=== PATIENT | female | born 1990 | race Caucasian/White ===

== ENCOUNTER 2021-07-27 22:18 | Outpatient (CLI) | payer MEDICAID, SELFPAY ==
[2021-07-27 22:25] VITALS: BMI 46.7
[2021-07-27 22:31] VITALS: PULSE 8; O2SAT 84
[2021-07-27 22:36] VITALS: BP 123/71; PULSE 98; TEMP 36.8; O2SAT 97
--- NOTE | 2021-07-28 11:08 | OB.TRI.NOTE ---
HPI - General HPI Narrative YESIKA ERIC, is a 31 F who presents at 39w5d with decreased movement. Unsure how many times baby had moved throughout the day, did not do kick counts. Had 3 movements in last half hour but decided to come in for evaluation. Upon arrival good movement. No contractions, vaginal bleeding, leakage of fluid or other concerns. Maternal Data Information DIOR Calculator Estimated Delivery Date Method Current WG Current Estimate 07/29/21 Manual 39w 6d PFSH PFSH Home Medications famotidine 20 mg PO BID #28 tablet 06/06/16 [Rx Last Taken Unknown] [id number] [ + Iron] 1 tab PO DAILY 07/27/21 [History Last Taken 07/26/21 08:00] Allergy/AdvReac Type Severity Reaction Status Date / Time No Known Allergies Allergy Verified 07/27/21 22:30 Social History Smoking Status: Former smoker Physical Exam Narrative 1cm NST FHR Rate Baby A Baseline: 135 Variability:: Moderate Accelerations:: 15 x 15 Decelerations:: None NST Reactive:: Yes Uterine Activity:: Irregular, unable to palpate Assessment & Plan (1) Decreased movement: (2) Term : PLAN: 1) Reactive NST, good movement upon arrival. No signs of labor 2) Labor instructions reviewed and when to call
== END 2021-07-27 23:43 | disposition home or self-care (01) ==
LOC: WPOUT 22:22 → WP 22:22
PROVIDERS: Referring Provider Advanced Practice Midwife; Visit Provider Advanced Practice Midwife
DX: O36.8130 Decreased fetal movements, third trimester, not applicable or unspecified (principal); Z3A.39 39 weeks gestation of pregnancy
CPT/HCPCS: 59025; 59050; 99218; G0378

== ENCOUNTER 2021-08-01 19:22 | Inpatient (IN) | payer MEDICAID, SELFPAY ==
[2021-08-01 19:43] VITALS: BP 137/80; PULSE 71; TEMP 36.6
[2021-08-01 20:13] LABS: Absolute Lymphocyte Count 3.55 X10^3/uL (0.83-4.51); Absolute Neutrophil Count 8.1 X10^3/uL (2.0-7.7); Basophil# 0.03 X10^3/uL; Basophil% 0.2 % (0-1); Eosinophil# 0.23 X10^3/uL; Eosinophils% 1.7 % (0-5); Hematocrit 38.3 % (37-47); Lymphocyte # 3.55 X10^3/ul (0.83-4.51); Mean Corp Hgb Conc 33.9 g/dL (32-36); Mean Corpuscular Hgb 30.8 pg (27.0-32.0); Mean Corpuscular Volume 90.8 fL (81-99); Mean Platelet Vol. 10.1 fl (6.2-12.0); Monocyte# 1.32 X10^3/uL; Monocyte% 9.7 % (0-10); NRBC Flagged by Analyzer 0 % (0-5); Neutrophil # 8.13 X10^3/uL (2.7-7.7); Neutrophil % 59.6 % (47-70); Platelet Count 278 K/mm3 (150-450); RBC Distribution Width CV 12.8 % (11.6-14.6); RBC Distribution Width SD 41.6 fl (35.1-43.9); Red Blood Count 4.22 M/mm3 (4.2-5.4); White Blood Count 13.6 K/mm3 (4.4-11.0)
--- NOTE | 2021-08-01 20:25 | PCM.HP.OB ---
HPI - General General Date of Admission: 08/01/21 HPI Narrative YESIKA ERIC, is a 31 year old at 40.3 weeks gestation who presents for induction of labor for postdates. has been complicated by late care, obesity, Hep. C positive, and GBS positive. She denies any loss of fluid, vaginal bleeding or contractions. Positive movement. Maternal Data Information DIOR Calculator Estimated Delivery Date Method Current WG Current Estimate 07/29/21 Manual 40w 3d PFSH PFSH Home Medications [id number] [ + Iron] 1 tab PO DAILY 07/27/21 [History Last Taken 07/26/21 08:00] Allergy/AdvReac Type Severity Reaction Status Date / Time No Known Allergies Allergy Verified 08/01/21 20:40 Social History Smoking Status: Former smoker NST FHR Rate Baby A Baseline: 135 Variability:: Moderate (Difficult to trace due to maternal size and position) Accelerations:: 15 x 15 Decelerations:: None NST Reactive:: Yes FHR Category:: Category I Uterine Activity:: TOCO- no contractions noted ROS Eyes Eyes: Denies blurry vision, change in vision or spots in vision ENT HEENT: Denies dizziness or headache(s) Cardiovascular Cardiovascular: Denies abdominal pain, chest pain or dyspnea Respiratory/Chest Respiratory/Chest: Denies cough, dyspnea, shortness of breath at rest or shortness of breath with exertion Gastrointestinal Gastrointestinal: Denies abdominal pain, diarrhea or vomiting Genitourinary Genitourinary: Denies change in urinary stream, difficulty urinating or dysuria Musculoskeletal Musculoskeletal: Reports none Integumentary Integumentary: Denies rash Neurologic Neurologic: Denies dizziness, headache(s), memory loss or weakness Psychiatric Psychiatric: Reports none Vital Signs Vital Signs Vital Signs: 08/01/21 19:43 Temperature 97.9 F Temperature Source Temporal Pulse Rate 71 Blood Pressure 137/80 H BP Systolic 137 BP Diastolic 80 Physical Exam Const alert, oriented x3 and no apparent distress General Appearance: cooperative Orientation / Consciousness: awake Exam Limitations: no limitations HEENT normocephalic Head and Scalp: normal to inspection Eyes General Eye: normal appearance of both eyes Neck full ROM and no lymphadenopathy Lymph Lymphatic: no lymphadenopathy noted Chest inspection of chest normal Resp normal respiratory effort, normal air movement and clear to auscultation bilaterally Effort and Inspection: able to speak in complete sentences and symmetric chest movement Cardio regular rate and regular rhythm GI normal to inspection, nondistended, normoactive bowel sounds Manual OB Exam: dilated 0.5, effaced 50 and station -3 Back/Spine normal ROM Extremity full ROM and no calf tenderness Skin no rashes or lesions noted General Skin Exam: no breakdown Neuro oriented x3 and CN's II-XII intact bilaterally Psych mental status grossly normal and thought process normal Labs Labs Labs: Blood Type Pending Antibody Screen Pending Hct 38.3 % (37-47) Hgb 13.0 g/dL (12.0-15.0) Neisseria gonorrhoeae DNA (PATRICIA) Negative (Negative) C.trachomatis DNA (PCR) Negative (Negative) B+ Rubella- immune HB- neg HC- positive RPR- NR HIV- NR GBS - positive Assessment & Plan (1) 40 weeks gestation of : (2) Obesity affecting , antepartum: (3) Hepatitis C test positive: (4) Late care affecting : QUALIFIERS: Trimester: third trimester Qualified Code(s): O09.33 - Supervision of with insufficient care, third trimester PLAN: Admit to labor and delivery for induction of labor NST reactive- Cat. 1 tracing IV- SL Labs per policy CE- 0.5/50/-3 Patient declining placement of mathis bulb at this time Cytotec 25 mcg PO every 4 hours GBS positive- Start PCN 5 million units IV then PCN 3 million units IV every 4 hours Hep C positive- no internal monitors Dr. Smith notified of admission and is collaborating physician
[2021-08-01] MEDS: miSOPROStol 25 MCG TABLET PO (20:35)
[2021-08-01 20:37] VITALS: BMI 46.2
--- NOTE | 2021-08-01 20:42 | NURSING ---
Pt mother in room and aunt Richard is other support person. Tab answered multiple questions for pt on admission about plan of care and management of after delivery. RN understanding after talking with pt and support people is that pt lives with Richard and pt mother lives in [place] and just drove up tonight to be with pt. This RN observed that aunt Richard spoke authoritatively over pt and tried on multiple times to influence her care and make decisions for her. At one point while this RN was adjusting FHR monitor aunt Richard made a comment about pt stating well you have all that extra tissue there referring to pts body image.
[2021-08-01 21:38] LABS: Amphetamine Urine VISTA NEGATIVE (<1000 ng/mL); Barbiturate Urine VISTA NEGATIVE (< 200 ng/mL); Benzodiazepine Urine VISTA NEGATIVE (< 200 ng/mL); Cocaine Urine VISTA NEGATIVE (< 300 ng/mL); Ecstacy Urine VISTA NEGATIVE (< 500 ng/mL); Methadone Urine VISTA NEGATIVE (< 300 ng/mL); PCP Urine VISTA NEGATIVE (< 25 ng/mL); THC Urine VISTA NEGATIVE (< 50 ng/mL); Vista UDS pH Range 6
[2021-08-01 23:16] VITALS: O2SAT 97
[2021-08-01 23:17] VITALS: BP 120/66; PULSE 68; TEMP 36.4
--- NOTE | 2021-08-01 23:59 | NURSING ---
Pt does not want to disclose name or race of father. Pt states father is not involved.
[2021-08-02] VITALS (84 sets, daily range): BP systolic 114–158; BP diastolic 59–92; PULSE 50–97; RESP 16–18; TEMP 35.9–37.2; O2SAT 90–100
[2021-08-02] MEDS: miSOPROStol 25 MCG TABLET PO ×2 (00:34→04:44)
[2021-08-02] MEDS: Mag Hydrox/Al Hydrox/Simeth 30 ML UDC PO (00:38)
[2021-08-02] MEDS: Lactated Ringers 500 ML 999 ML IV ×3 (06:30→20:51)
[2021-08-02] MEDS: 0.9% Normal Saline Single 100 ML IV.SOLN. INTRA-UTER (08:45)
[2021-08-02] MEDS: Lactated Ringers 1,000 ML 50 ML IV (09:00)
[2021-08-02] MEDS: Oxytocin 30 units/NS 500 ml 30 UNITS/500 ML IV.SOLN IV (10:18)
[2021-08-02] MEDS: Penicillin G 3,000,000 Units 50 ML 100 UNITS IV (14:10)
[2021-08-02] MEDS: 0.9% Saline Lock 10 ML Syringe IV (15:50)
[2021-08-02] MEDS: fentaNYL 100 MCG/2 ML Ampul IV (15:50)
--- NOTE | 2021-08-02 17:28 | PN.OBGYN_ITS ---
Subjective Subjective Uncomfortable with contractions, crying and tearful. Objective Data Objective Data Vital Signs: Vital Signs Temp Pulse BP Pulse Ox 97.5 F L 74 127/82 H 97 08/02/21 13:34 08/02/21 13:34 08/02/21 13:34 08/02/21 10:02 Weight: 295 lb Body Mass Index (BMI) 46.2 Intake & Output: Intake and Output for Last 24 Hours 07/31/21 08/01/21 08/02/21 23:59 23:59 23:59 Intake Total 2302.57 / 2302.57 Output Total 400 / 400 200 / 200 Balance -400 / -400 2102.57 / 2102.57 Lab / Micro Data Result Diagrams: 08/01/21 19:50 Labs: Laboratory Results - last 24 hr 08/01/21 19:50: WBC 13.6 H, RBC 4.22, Hgb 13.0, Hct 38.3, MCV 90.8, MCH 30.8, MCHC 33.9, RDW Std Deviation 41.6, RDW Coeff of Shonda 12.8, Plt Count 278, MPV 10.1, Immature Gran % (Auto) 2.800 H, Neut % (Auto) 59.6, Lymph % (Auto) 26.0, Cooper % (Auto) 9.7, Eos % (Auto) 1.7, Baso % (Auto) 0.2, Absolute Neuts (auto) 8.1 H, Absolute Lymphs (auto) 3.55, Nucleated RBC % 0 08/01/21 19:50: Blood Type B POSITIVE, Antibody Screen NEGATIVE 08/01/21 21:20: Urine Opiates Screen NEGATIVE, Urine Methadone Screen NEGATIVE, Ur Barbiturates Screen NEGATIVE, Ur Phencyclidine Scrn NEGATIVE, Ur Amphetamines Screen NEGATIVE, U Methamphetamin-MDMA NEGATIVE, U Benzodiazepines Scrn NEGATIVE, Urine Cocaine Screen NEGATIVE, U Cannabinoids Screen NEGATIVE, Ur Drug Screen Comment Physical Exam Narrative 5/80/-2, moderate amount of meconium stained fluid, AROM NST FHR Rate Baby A Baseline: 145 Variability:: Moderate Accelerations:: 15 x 15 Decelerations:: None FHR Category:: Category I Uterine Activity:: every 2-4 minutes Assessment & Plan (1) 40 weeks gestation of : (2) Obesity affecting , antepartum: (3) Hepatitis C test positive: PLAN: 1) AROM 2) Epidural for pain management 3) Pitocin increase per policy 4) notified of patient status and AROM.
[2021-08-02] MEDS: fentaNYL-bupivacaine (epidural) 100 ML BAG EPIDURAL (18:03)
[2021-08-02] MEDS: Penicillin G 3,000,000 Units 50 ML 75 UNITS IV (18:16)
[2021-08-02] MEDS: Lactated Ringers 1,000 ML 200 ML IV (20:42)
[2021-08-02] MEDS: Amnioinfusion- 0.9% NS 1,000 ML IV.SOLN. 1000 ML INTRA-UTER (21:10)
[2021-08-02] MEDS: Acetaminophen 500 MG Tablet PO (22:00)
[2021-08-02] MEDS: Sodium Citrate/Citric Acid 30 ML UDC PO (22:01)
--- NOTE | 2021-08-02 22:03 | PCM.PN.BLA ---
Progress Note Updated with patient status. Tracing reviewed. Patient having recurrent late decelerations. Pitocin is off. Cervical exam rechecked still 6 cm/90/-3 station. Discussion with patient that I feel at this time she is remote from delivery with recurrent late decelerations despite resuscitative efforts. plan is to proceed with a primary section. Patient was counseled on primary section. OR staff was notified. Preoperative antibiotics were ordered.
--- NOTE | 2021-08-02 22:05 | OP.PCM_ITS ---
Assessment & Plan (1) Late deceleration of heart rate: (2) Post term over 40 weeks: (3) Meconium in amniotic fluid affecting management of mother in third tr imester: (4) Hepatitis C test positive: (5) Obesity affecting , antepartum: (6) Late care affecting : QUALIFIERS: Trimester: third trimester Qualified Code(s): O09.33 - Supervision of with insufficient care, third trimester Maternal Data Information DIOR Calculator Estimated Delivery Date Method Current WG Current Estimate 07/29/21 Manual 40w 4d Details Operative Information Date of Procedure: 08/02/21 Pre-Operative Diagnosis: recurrent late decelerations, 40.5 weeks gestation, meconium fluid, obesity in , late care, Hep C positive Post-Operative Diagnosis: same, live female infant Indications for : Nonreassuring Status Indications Narrative: Patient presented to labor and delivery for scheduled induction of labor-received Cytotec, transcervical Maloney, Pitocin. Artificial rupture membranes was performed at approximately 5 PM on 08/02/2021. Patient had prolonged decelerations followed by recurrent late decelerations and is remote from delivery. Last cervical exam 6 cm/90/-3. Decision at this time to proceed with a primary low transverse section. Classification: SATINDER Procedure Type: low transverse automobile tester #1: Kathrin Neumann Type of Anesthesia: Epidural Antibiotic Given: Ancef 3 grams IV x1 and Zithromax 500 mg/5 mL X1 Drain: Maloney to straight drain Estimated Blood Loss: 700 Fluids Replaced: 1000 Procedure Start Time: 22:29 Time of Delivery: 22:37 Findings Description of Procedure: After informed consent was obtained the patient was taken the operating room. She was then placed in the supine position. She was prepped and draped in the normal sterile fashion. Epidural Anesthesia was found to be adequate. At this time a Pfannenstiel skin incision was made with a knife was carried down to the underlying layer of the fascia. The fascial incision was then extended laterally using curved Rodriguez scissor. Attention was then turned to the superior aspect of the fascial edge was grasped with 2 straight [place] clamps tented up and the rectus muscle dissected off sharply using curved Rodriguez scissor. Attention was then turned to the inferior aspect where again Keegan clamps were placed in the rectus muscles were tented up and the fascia was dissected off sharply using the curved Rodriguez scissor. Rectus muscles were then in the midline bluntly and peritoneum was entered bluntly. Gentle opposing traction was placed. At this time the vesicouterine peritoneum was identified. Scalpel was used to make a uterine incision in a low transverse fashion. The uterus was then entered bluntly gentle opposing traction was placed to extend this incision. amniotic fluid- meconium stained. 's head was brought to the uterine incision was delivered atraumatically no nuchal cord noted but loops of cord noted between head and lower uterine segment. Head also was felt to be asynclitic. Mouth and nose suctioned. Cord was clamped and cut was handed to the waiting nursery team. The Placenta was removed from the uterus. The uterus remained in the intraabdominal cavity. The uterus was cleared of all clots and debris using a lap. At this time the uterine incision was reapproximated using #1 Vicryl in a running locked fashion. followed by a second layer for hemostasis using figure of eights with #1 vicryl. Hemostasis was appreciated. Kailyn placed. Gutters were cleared of all clots and debris. Uterine incision was reevaluated and noted to be of excellent hemostasis. At this time the peritoneum was grasped with Kellys reapproximated using #2 Vicryl suture in a running fashion. Arsita placed over rectus muscle. Fascia was then reapproximated using #1 PDS in a running fashion. Bovie used to obtain good hemostasis in subcu later. Subcu layer was reapproximated with #2 0 plain gut suture in an interrupted fashion. Kailyn placed. Subcu layer was closed using 4-0 Monocryl in a subcu fashion. Dry sterile dressing was applied. Instrument lap needle count correct ?2. Anticipated normal postoperative course. Presentation: Positive for Vertex Amniotic Membrane Rupture Type: Artificial Amniotic Fluid Description: Moderate meconium Placental Delivery Description: Manual Removal Placenta Disposition: [facility] Cord Vessel Description: 3 Vessels Cord Entanglement: None Cord Gases: ABG and VBG Infant A Gender: Female (1 minute): 8 (5 minute): 8 Delayed Cord Clamping: No Complications Risks of Surgery Discussed w/Patient: Bleeding, Anesthesia Risks, Infection and Injury to surrounding structure(s) including bowel and bladder Complications: none Admit VTE Documentation VTE Present on Admission: Yes VTE Mechan Device Prophylaxis: SCD's VTE Pharm Prophylaxis Ordered: Yes
[2021-08-02] MEDS: Oxytocin 30 units/NS 500 ml 30 UNITS/500 ML IV.SOLN 167 UNITS IV (23:44)
[2021-08-02] MEDS: Ketorolac 30 MG/ML Syringe IV (23:59)
[2021-08-03] VITALS (14 sets, daily range): BP systolic 112–134; BP diastolic 63–87; PULSE 62–77; RESP 16–18; TEMP 36.1–37.1; O2SAT 93–100
[2021-08-03] MEDS: Lactated Ringers 1,000 ML 100 ML IV (02:52)
[2021-08-03] MEDS: Acetaminophen 500 MG Tablet 1000 MG PO ×4 (04:27→22:40)
[2021-08-03] MEDS: Ketorolac 30 MG/ML Syringe IV ×3 (05:26→17:35)
[2021-08-03 06:11] LABS: Hematocrit 31.5 % (37-47); Hemoglobin 10.4 g/dL (12.0-15.0); Mean Corpuscular Hgb 30.2 pg (27.0-32.0); Mean Corpuscular Volume 91.6 fL (81-99); Mean Platelet Vol. 10.1 fl (6.2-12.0); Platelet Count 242 K/mm3 (150-450); RBC Distribution Width CV 12.7 % (11.6-14.6); RBC Distribution Width SD 41.6 fl (35.1-43.9); Red Blood Count 3.44 M/mm3 (4.2-5.4); White Blood Count 15.3 K/mm3 (4.4-11.0)
[2021-08-03] MEDS: Senna/Docusate Sodium 1 Tablet PO (10:30)
[2021-08-03] MEDS: Enoxaparin 40 MG/0.4 ML Syringe SC ×2 (10:30→22:40)
--- NOTE | 2021-08-03 17:14 | CASEMGMT ---
Social Work Assessment Labor and Delivery Unit Patient Address: [address] [place] [address] [place] [address] Phone number: [phone] Date of Referral: 08/03/2021 Time of Referral: 58 Referred By: Dr. Kamila Brannon Date of Intervention: 08/03/2021 Time of Intervention: 165 Reason for Referral: Limited support, father of baby (FOB) not involved History obtained from: Medical records and mother of baby (MOB) Ev Card Household composition: GIULIANA reports to live with her paternal aunt Shantel Ruelas for the last 1 month. Also in the home is Zoila's ex- and a 2-year-old named Kacey whom Shantel adopted through the state. MOB reports to feel safe in this home situation. Patient's parent/guardian status: GIULIANA is a 31-year-old single female. The FOB is identified as a male by the name of Manny, whom the MOB was involved with for 3 to 4 months. MOB reports that Manny does not even know about this baby, due to MOB finding out about late in the game and due to Manny moving out of state. MOB reports believe that Manny might have a disability. MOB denies that Manny was abusive in any way during the few months they were together; denies control issues. baby girl is to be named Jessica Card, born 08/02/2019. Medical History: GIULIANA is 1, para 0 now 1 after delivering Jessica. care started at 33 weeks, and it appears as though there were 2 visits in total. MOB reports to this curriculum writer that GIULIANA has always had irregular menses, and was told by doctors that GIULIANA would not have babies. MOB reports looking back, felt some movements in her abdomen but thought it was muscle cramping. MOB reports she eventually took some home tests which were positive, and then went to [facility] emergency department who told the MOB, that the MOB was 8 weeks . MOB reports that her aunt helped MOB figure out that the MOB was actually much farther along than 8 weeks. MOB reports that she just found out about her hepatitis C diganosis when I went from a glucose test and blood was drawn. MOB reports belief hepatitis C contraction due to home tattoos, and the landscape artist using dirty needles. baby girl Jessica was delivered via an SATINDER . weight 3925 g. Apgars 8 and 8 at 1 and 5 minutes of life respectively. Educational Status: GIULIANA got through the 11th grade. Reports she is able to read, write, and understand what is read. However upon further questioning MOB endorsed having an IEP in school but does not remember what it was for. Financial Status: GIULIANA has been working at [employer] and plans to return to work when able. Infant Supplies: MOB reports that Shantel helped out with baby supplies. GIULIANA has a bassinet, car seat, clothes, diapers, wipes. Plans to try breast-feeding the baby. Also reports plan to do some bottle feeding months can purchase some formula. Childcare/Caregiver(s): MOB plans to be the primary caregiver along with help from aunhannah Funes. Transportation: GIULIANA does not have a recycler forklift driver truck driver's license and has been relying on Shantel to get to appointments. Programs/Agencies Involved: MOB reports to have a food card and medical through job and family services. Reports to have WIC. Initially declined a referral to help me grow, but when this curriculum writer offered to make the aunt the primary internet salesperson the MOB immediately consented, making a statement that the aunt will understand better about help me grow, and then be able to explain this to the patient/MOB. Children Services/Legal Issues: MOB denies any legal issues and denies children services history. Behavioral Health Issues: Mental Health History: [place] depression screen completed with the MOB with a score of 3. Scores for blaming self unnecessarily when things went wrong, feeling scared or panicky for no good reason, and sometimes being unhappy that had difficulty sleeping. MOB denied any thoughts of harming self in the last week. MOB does endorse a history of some depression around the age of 20 or 21, and reported at that time had suicide attempted, tried to drown myself but stopped self from doing so. MOB initially informed this curriculum writer that was 19 years old when this self interrupted suicide attempt occurred, and then after some questioning by this curriculum writer the MOB changed timeframe to be between the age of 20 and 21. MOB reports had a psychiatric hospitalization at the time of the attempt, with a discharge to a fpc for a couple of months. No other treatment history reported. Denies any suicidal ideation, planning, or attempts since that time. No endorsed homicidal ideation. Substance Use History: MOB reports she drank a few times during this , before knowledge of . Reports she drinks about every 3 to 4 months, just enough to get a buzz and usually drinks wine coolers. Denies marijuana history. Denies any other illicit drug use such as pills, heroin, meth, or cocaine. MOB reports she was vaping until about 4 to 5 months into the . Reports she stopped vaping due to losing interest. Family History: MOB endorses depression in the MOB father and the MOB aunt. Drug Screens: The drug screen on 06/12/2021 - and also negative on 08/01/2021. Meconium drug screen is pending on the baby. Urine is to be collected. Family/Social Stressors: MOB with an unplanned describing self as late to game about finding out. MOB endorses she felt overwhelmed upon finding out about , but denies any consideration regarding adoption. MOB is uncertain where the father of baby is currently living and reports that find the FOB one way or another, at some time. Limited care. Was living with a friend named Sarah prior to moving in with the aunt 1 month ago. Support Systems: Reports frequent Zoila is the primary support person and the person that MOB will talk to when feeling overwhelmed. Per MOB mother, the aunt is a [id number] mom. MOB reports MOB's father is a support. MOB mother Marianna Dawson is visiting from [place] and is the MOB second support person in the hospital. Depression/Shaken Baby/Safe Sleeping: Educated MOB to safe sleeping, and MOB asked if this was about sleeping with the baby. Educated MOB recommendation not to sleep with the baby, which the MOB expressed understanding of. Educated the need to have baby on the back and no extra blankets or items in the crib. MOB reported she knew the baby was just sleep on the back. MOB reports she was aware of what shaken baby syndrome is, but unable to tell this curriculum writer what would do to prevent shaken baby. Educated MOB to the importance of setting baby down in a safe place such as a crib or bassinet, and then walking away for 5 or 10 minutes and regrouping. Also educated that can handed baby off to another person who is calm. Educated MOB to depression and anxiety, risk factors, and the importance of talking to somebody if MOB starts feeling depressed or anxious. ASSESSMENT: Met with the MOB and her mother Marianna in the room. Introduced to self and social work role. MOB cooperative and willing to speak to this curriculum writer. Observed to the MOB mother to take the baby from the mother's chest and re-swaddle the baby. Baby slept in the bedside crib for the duration of social work visit. Did spit up 1 time and the MOB looked over at the baby and made a comment that could not reach the baby. This curriculum writer assisted and helped to clean the baby out. The MOB would look at the baby intermittently and did smile at the baby. MOB mother was mostly quiet during the conversation but did give input a couple of times. MOB mother left the room when this curriculum writer requested for completion of depression screening. MOB reports to feels safe in her current home situation and denies that anyone in her life is controlling her telling her what to to do. Gently explored with the MOB about observed interactions during labor. MOB reports that she spoke with her aunt prior to coming into the hospital, about the MOB wishes, and that the aunt was better helping to talk about patient's wishes. The MOB does appear to have some level of learning deficit/understanding as evidenced by MOB having an IEP in school and being uncertain but the IEP was for, as well as MOB initially time is writing about a suicide attempt at the age of 19 and then stating that was over the age. MOB redirected that 19 not over the age, then MOB reported that was 20 or 21 when the suicide attempt and fpc placement occurred. MOB also did not seem to understand the purpose of helping grow services, even after education was provided, stating that with the use the program later on when MOB returned to work. When this curriculum writer offered to have the ER to be the primary internet salesperson, the MOB immediately agreed this would be a good idea so that the aunt could explain things. Provided MOB with community resource list of agencies as well as packet on mood and anxiety disorders. Verbally reviewed information, and encouraged the MOB to share this with her family to additional support. PLAN: MOB and will discharge home to aunts home when ready. The aunt will be at home to assist. Plan to make [facility] referral. Community resource list has been provided. Encouraged MOV to share with her support system. 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 Social work does remain available should additional needs or concerns arise prior to discharge. -CHARBEL Jaimes, DONNA *This note was generated with [employer] dictation software. It may contain incorrect words, spelling, and punctuation that were not noted in review of the chart prior to signing*
[2021-08-03] MEDS: Ibuprofen 600 MG Tablet PO (22:40)
[2021-08-04 02:25] VITALS: BP 116/63; PULSE 61; RESP 18; TEMP 36.6
[2021-08-04] MEDS: Ibuprofen 600 MG Tablet PO ×3 (04:39→18:29)
[2021-08-04] MEDS: Acetaminophen 500 MG Tablet 1000 MG PO ×3 (04:40→18:29)
[2021-08-04 08:31] VITALS: BP 125/71; PULSE 60; RESP 16; TEMP 36.3
--- NOTE | 2021-08-04 09:40 | PCM.PN.OB ---
Subjective Subjective Pain well controlled. Average lochia. No nausea or vomiting. Objective Data Objective Data Vital Signs: Vital Signs Temp Pulse Resp BP Pulse Ox 97.3 F L 60 16 125/71 H 100 08/04/21 08:31 08/04/21 08:31 08/04/21 08:31 08/04/21 08:31 08/03/21 20:08 Oxygen Delivery Method Room Air Weight: 133.81 kg Body Mass Index (BMI) 46.2 Intake & Output: Intake and Output for Last 24 Hours 08/02/21 08/03/21 08/04/21 23:59 23:59 23:59 Intake Total 4489.53 / 4489.53 1093.33 / 1093.33 Output Total 500 / 500 1075 / 1075 Balance 3989.53 / 3989.53 18.33 / 18.33 Lab / Micro Data Result Diagrams: 08/03/21 06:00 Physical Exam Const alert General Appearance: cooperative GI GI Narrative: soft, moderate distention, fundus firm, appropriately tender. Abdominal bandage clean dry and intact Assessment & Plan (1) deliv NOS-unsp: PLAN: Postoperative day #2 status post section. is doing well. Patient is doing well. Routine care. Patient desires discharge home tomorrow.
[2021-08-04] MEDS: Senna/Docusate Sodium 1 Tablet PO (10:18)
[2021-08-04] MEDS: Enoxaparin 40 MG/0.4 ML Syringe SC ×2 (10:19→22:38)
--- NOTE | 2021-08-04 13:50 | CASEMGMT ---
AMY Note Referral Source: [facility] Referral Reason: Follow Up SW called oncology admin Alina. She reports no additional concerns or issues with patient. Plan for discharge on Friday08/05/21. Plan: Home at discharge. Zena BARGER
[2021-08-04 14:14] VITALS: BP 109/53; PULSE 68; RESP 16; TEMP 36.3
[2021-08-04 21:36] VITALS: BP 120/60; PULSE 67; RESP 18; TEMP 36.3
[2021-08-05] MEDS: Ibuprofen 600 MG Tablet PO ×2 (00:02→06:16)
[2021-08-05] MEDS: Acetaminophen 500 MG Tablet 1000 MG PO ×2 (00:02→06:16)
[2021-08-05 01:35] VITALS: BP 123/66; PULSE 65; RESP 18; TEMP 36.1
[2021-08-05 07:41] VITALS: BP 110/70; PULSE 54; RESP 16; TEMP 36.4
--- NOTE | 2021-08-05 09:16 | PCM.PN.OB ---
Subjective Subjective Pain well controlled, average lochia. Has had a bowel movement. Denies nausea or vomiting. Objective Data Objective Data Vital Signs: Vital Signs Temp Pulse Resp BP Pulse Ox 97.5 F L 54 L 16 110/70 100 08/05/21 07:41 08/05/21 07:41 08/05/21 07:41 08/05/21 07:41 08/03/21 20:08 Oxygen Delivery Method Room Air Weight: 133.81 kg Body Mass Index (BMI) 46.2 Intake & Output: Intake and Output for Last 24 Hours 08/03/21 08/04/21 08/05/21 23:59 23:59 23:59 Intake Total 1093.33 / 1093.33 Output Total 1075 / 1075 Balance 18.33 / 18.33 Lab / Micro Data Result Diagrams: 08/03/21 06:00 Physical Exam Const alert General Appearance: cooperative HEENT normocephalic Resp normal respiratory effort Cardio regular rate GI soft to palpation GI Narrative: soft, moderate distention, fundus firm, appropriately tender. Abdominal bandage clean dry and intact Extremity no calf tenderness General Extremity: edema Skin no wounds Rashes: No rashes noted Psych activity/motor behavior normal Assessment & Plan (1) deliv NOS-unsp: PLAN: Postoperative day #3 status post primary section. and patient are doing well. Discharged home with routine instructions and prescriptions.
--- NOTE | 2021-08-05 09:37 | PCM.DC.SUM ---
Providers Date of Admission: 08/01/21 Primary Care Physician: Gianna Primary Care Phys Reason For Visit: INDUCTION Diagnosis Discharge Diagnosis (1) deliv NOS-unsp: Status: Acute Medications at Discharge Home Medications [id number] 1 tab PO DAILY 07/27/21 naproxen 375 mg PO TID 10 Days #30 tab 08/05/21 Hospital Course Operations - (Primary low transverse section performed on 08/02/2021) Procedures None Summary of Care Provided Hospital Course: Patient is a 31-year-old female who presented at 40 weeks and 3 days. was complicated by morbid maternal obesity with BMI of 46, and hepatitis C. She was admitted for induction of labor. She had a primary section for arrest of dilation and decelerations. She also had meconium stained fluid. Postoperatively her course was unremarkable by postoperative day #3 she was ambulating, urinating tolerating regular diet and ready for discharge. Weight / BMI Weight Weight: 133.81 kg Body Mass Index (BMI) 46.2 ABG / Lab / Microbiology Data Result Diagrams: 08/03/21 06:00 D/C Instructions Discharge Diet: No restrictions May resume sexual activity in: 4-6 weeks Lifting Restrictions: 20 pounds Additional Activity Instructions: Nothing in the vagina for 4-6 weeks. You may return to work/school in 6 weeks. Call your doctor if your incision/area has: Continuous Slow Oozing, Sudden Increased Bleeding, Increased Pain/ Swelling, Increased Redness and Foul Smelling Discharge Call your doctor if you observe: Fever of 101 or Higher and Using more than 1 pad per hour (for 2 hours) Suture Line Care: Avoid Pulling/Pushing and Avoid Pinching/Bending Cleanse incision/area with: Keep Dressing Clean & Dry Please Follow Up With: Makayla Smith MD When: Call to make an appointment for an incision check in 1-2 [phone]. You will need a post check in 6 weeks. Meaningful Use Info Meaningful Use Diagnoses (Choose all that apply): None applicable Discharge Plan Admission Admit Date/Time: 08/01/21 19:22 Primary Reason for Your Visit: Induction of labor Attending Provider: Sally Wade Primary Care Provider: Care Physician,No Primary Instructions Patient Instructions: After a Discharge Orders/Prescriptions Prescriptions: New naproxen 375 mg tablet 375 mg PO TID 10 Days Qty: 30 RF: 0 Continued [id number] 1 mg Tablet 1 tab PO DAILY RF: 0 Referrals / Follow Up: Care Physician,No Primary [Primary Care Provider] - Disposition Disposition (needs filled in before D/C Order can be placed): Home, Self Care
[2021-08-05] MEDS: Enoxaparin 40 MG/0.4 ML Syringe SC (10:03)
--- NOTE | 2021-08-06 13:29 | CASEMGMT ---
Social Work Labor and Delivery Unit Referral to [facility] today. Spoke with Nazia Khan at [phone], extension [phone]. Referral due to report of alcohol use during and late care. Reported additional risk factors/concerns including potential maternal learning issues, history of depression/suicide attempt, questionable level of support and observed interactions by nursing regarding MOB and the aunt. Brief maternal and histories provided. Meconium test pending for baby. Will monitor for results. [employer] referral completed via the [facility] web based referral system. -VERNA Jaimes, JEWEL BEARING FACER
--- NOTE | 2021-08-14 13:24 | CASEMGMT ---
Social Work Labor and Delivery 's meconium results back and negative. No further referrals requested or indicated. -CHARBEL Jaimes, HIDE GRADER
== END 2021-08-05 10:50 | disposition home or self-care (01) | DRG 540 ==
PROVIDERS: Obstetrics & Gynecology; Admitting Provider Advanced Practice Midwife; Referring Provider Advanced Practice Midwife; Visit Provider Advanced Practice Midwife
DX: O99.214 Obesity complicating childbirth (principal); E66.01 Morbid (severe) obesity due to excess calories; O76 Abnormality in fetal heart rate and rhythm complicating labor and delivery; O98.82 Other maternal infectious and parasitic diseases complicating childbirth; B95.1 Streptococcus, group B, as the cause of diseases classified elsewhere; O98.42 Viral hepatitis complicating childbirth; B19.20 Unspecified viral hepatitis C without hepatic coma; O77.0 Labor and delivery complicated by meconium in amniotic fluid; Z3A.40 40 weeks gestation of pregnancy; Z37.0 Single live birth
CPT/HCPCS: 59025; 59050; 80307; 85025; 85027; 86850; 86900; 86901; 99218; 99251; J7030; J7120; A4216; G0378; G0463